=== PATIENT | male | born 1970 | race Caucasian/White ===

== ENCOUNTER 2016-12-01 23:51 | Observation (INO) | payer OTHER ==
[2016-12-02 00:06] VITALS: TEMP 97.1; BMI 28.8
--- NOTE | 2016-12-02 00:11 | PDOC ---
History of Present Illness - General History Source: Patient Exam Limitations: No Limitations - History of Present Illness Initial Comments: 12/02/16 00:31 The patient is a 46 year old male, with a significant past medical history of diabetes, hypertension and hyperlipidemia, who presents to the emergency department complaining of chest pain for the past couple of hours. The patient describes the pain as a tightness. He reports associated numbness and throat tightness. The patient states he feels pain in his throat when swallowing, and feels as if he were about to choke. He reports throat pain is exacerbated when taking a deep breath. He states he feels tension in his shoulders and tightness in his jaw. He reports yellow nasal discharge, but denies any fever, chills, cough, headache, or dizziness. The patient reports a history of nasal congestion , but states his symptoms today are different from those of his congestion. The patient denies any diaphoresis or palpitations. The patient denies any abdominal pain, nausea, vomiting, diarrhea, constipation, or changes in urination patterns. Allergies: None reported. Past Surgical History: None reported. Social History: Current everyday smoker. Denies alcohol or drug use. <Deny Lua - Last Filed: 12/02/16 02:03> <Jack Carson - Last Filed: 12/03/16 09:19> - General Chief Complaint: CVA/TIA Stated Complaint: NUMBNESS Time Seen by Provider: 12/02/16 00:10 Past History <Deny Lua - Last Filed: 12/02/16 02:03> - Past Medical History Anemia: No Asthma: No Cancer: No Cardiac Disorders: No CVA: No COPD: No CHF: No Dementia: No Diabetes: No GI Disorders: No Disorders: No HTN: Yes Hypercholesterolemia: Yes (triglycerides) Liver Disease: No Seizures: No Thyroid Disease: No - Surgical History Abdominal Surgery: No Appendectomy: No Cardiac Surgery: No Cholecystectomy: No Lung Surgery: No Neurologic Surgery: No Orthopedic Surgery: No - Psycho/Social/Smoking Cessation Hx Suicidal Ideation: No Smoking History: Current every day smoker Have you smoked in the past 12 months: Yes Number of Cigarettes Smoked Daily: 10 Information on smoking cessation initiated: Yes 'Breaking Loose' booklet given: 12/02/16 Hx Alcohol Use: No Drug/Substance Use Hx: No Substance Use Type: None Hx Substance Use Treatment: No <[email or web address] - Last Filed: 12/03/16 09:19> - Past Medical History Allergies/Adverse Reactions: Allergies Allergy/AdvReac Type Severity Reaction Status Date / Time No Known Drug Allergies Allergy Verified 12/02/16 00:04 Home Medications: Ambulatory Orders Candesartan/Hydrochlorothiazid [Atacand Hct 32-12.5 mg -] 1 each PO DAILY Rosuvastatin Calcium [Crestor] 10 mg PO ASDIR 09/01/12 Review of Systems - Review of Systems Able to Perform ROS?: Yes Comments:: 12/02/16 00:32 GENERAL/CONSTITUTIONAL: +Numbness. No fever or chills. HEAD, EYES, EARS, NOSE AND THROAT: +Throat tightness/ difficulty swallowing, + nasal discharge. No change in vision. No ear pain or discharge. CARDIOVASCULAR: +Chest pain/tightness. No shortness of breath. RESPIRATORY: No cough, wheezing, or hemoptysis. GASTROINTESTINAL: No nausea, vomiting, diarrhea or constipation. GENITOURINARY: No dysuria, frequency, or change in urination. MUSCULOSKELETAL: +Shoulder tension. No joint or muscle swelling or pain. No neck or back pain. SKIN: No rash NEUROLOGIC: No headache, vertigo, loss of consciousness, or change in strength/ sensation. ENDOCRINE: No increased thirst. No abnormal weight change. HEMATOLOGIC/LYMPHATIC: No anemia, easy bleeding, or history of blood clots. ALLERGIC/IMMUNOLOGIC: No hives or skin allergy. <Deny Lua - Last Filed: 12/02/16 02:03> *Physical Exam - Vital Signs Last Vital Signs Temp Pulse Resp BP Pulse Ox 97.1 F L 83 18 130/92 97 12/02/16 00:05 12/02/16 00:05 12/02/16 00:05 12/02/16 00:05 12/02/16 00:05 - Physical Exam Comments: 12/02/16 00:34 GENERAL: Awake, alert, and fully oriented, in no acute distress HEAD: No signs of trauma EYES: PERRLA, EOMI, sclera anicteric, conjunctiva clear ENT: Auricles normal inspection, hearing grossly normal, nares patent, oropharynx clear without exudates. Moist mucosa NECK: Normal ROM, supple, no lymphadenopathy, JVD, or masses LUNGS: Breath sounds equal, clear to auscultation bilaterally. No wheezes, and no crackles HEART: Regular rate and rhythm, normal S1 and S2, no murmurs, rubs or gallops ABDOMEN: Soft, nontender, normoactive bowel sounds. No guarding, no rebound. No masses EXTREMITIES: Normal range of motion, no edema. No clubbing or cyanosis. No cords, erythema, or tenderness NEUROLOGICAL: Cranial nerves II through XII grossly intact. Normal speech, normal gait SKIN: Warm, Dry, normal turgor, no rashes or lesions noted. <Deny Lua - Last Filed: 12/02/16 02:03> - Vital Signs Last Vital Signs Temp Pulse Resp BP Pulse Ox 97.1 F L 83 18 130/92 97 12/02/16 00:05 12/02/16 00:05 12/02/16 00:05 12/02/16 00:05 12/02/16 00:05 <Jack Carson - Last Filed: 12/03/16 09:19> ED Treatment Course - LABORATORY CBC & Chemistry Diagram: 12/02/16 00:30 12/02/16 00:30 <Deny Lua - Last Filed: 12/02/16 02:03> - LABORATORY CBC & Chemistry Diagram: 12/02/16 00:30 12/02/16 00:30 <Jcak Carson - Last Filed: 12/03/16 09:19> Medical Decision Making - Medical Decision Making 12/02/16 02:05 Patient was administered nitroglycerin, which provided relief of chest pressure. <Deny Lua - Last Filed: 12/02/16 02:03> - Medical Decision Making 12/02/16 00:52 The patient has NO stroke or TIA symptoms at all. He described to me a pressure in the chest that radiates to his jaw, also a shortness of breath and no diaphoresis. ON exam: he is symmetrical and has no motor and sensory deficits and CR 2-12 are intact. <Jack Carson - Last Filed: 12/03/16 09:19> *DC/Admit/Observation/Transfer - Attestations Scribe Attestion: 12/02/16 00:35 Documentation prepared by Deny Lua, acting as medical parasitologist for Jack Carson MD. <Deny Lua - Last Filed: 12/02/16 02:03> <Jack Carson - Last Filed: 12/03/16 09:19> Diagnosis at time of Disposition: Chest pain Qualifiers: Chest pain type: unspecified Qualified Code(s): R07.9 - Chest pain, unspecified
[2016-12-02] MEDS ORDERED: ASPIRIN 325 MG ENTERIC COATED TABLET (FP) PO ONE (00:17)
[2016-12-02] MEDS ORDERED: NITROGLYCERIN SUBLINGUAL 1/150 0.4 MG TAB ONE (00:38)
[2016-12-02] MEDS ORDERED: ASPIRIN 325 MG ENTERIC COATED TABLET (FP) ONE (00:38)
[2016-12-02] MEDS: NITROGLYCERIN SUBLINGUAL 1/150 0.4 MG TAB SL PRN ×2 (00:42→00:56)
[2016-12-02 01:00] LABS: BASOPHIL 0.5 % (0-2.0); EOSINOPHIL 0.2 % (0-4.5); MCH 30.9 pg (25.7-33.7); MCHC 34.6 g/dl (32.0-35.9); MEAN CELL VOLUME 89.4 fl (80-96); NEUTROPHILS 80.4 % (42.8-82.8); PLATELET COUNT 213 K/MM3 (134-434); RDW 13.2 % (11.9-15.9); WHITE BLOOD COUNT 11.3 K/mm3 (4.0-10.0)
[2016-12-02 01:20] LABS: INR 1.07 (0.82-1.09); PROTHROMBIN TIME (PATIENT) 11.8 SEC (9.98-11.88)
[2016-12-02 01:23] LABS: ACTIVATED PTT 49.9 SECONDS (26.9-34.4)
[2016-12-02 01:29] LABS: ANION GAP 13 (8-16); BILIRUBIN,TOTAL 0.5 mg/dL (0.2-1.0); CALCIUM 8.6 mg/dL (8.5-10.1); CO2 24 mmol/L (21-32)
[2016-12-02 01:32] LABS: ALK PHOS 49 U/L (45-117); TROPONIN I < 0.02 ng/ml (0.00-0.05)
[2016-12-02 01:49] LABS: GLUCOSE,RANDOM 143 mg/dL (74-106); SGOT/AST 42 U/L (15-37)
[2016-12-02 01:50] LABS: SGPT/ALT 68 U/L (12-78)
--- NOTE | 2016-12-02 07:19 | PDOC ---
*Physical Exam - Vital Signs Last Vital Signs Temp Pulse Resp BP Pulse Ox 97.1 F L 60 18 110/81 97 12/02/16 00:05 12/02/16 06:30 12/02/16 06:30 12/02/16 06:30 12/02/16 06:30 ED Treatment Course - LABORATORY CBC & Chemistry Diagram: 12/02/16 00:30 12/02/16 00:30 - ADDITIONAL ORDERS Additional order review: Laboratory Results 12/02/16 12/02/16 00:30 00:30 INR 1.07 PTT (Actin FS) 49.9 H D Sodium 140 Potassium 4.0 Chloride 103 Carbon Dioxide 24 Anion Gap 13 BUN 18 D Creatinine 1.0 D Creat Clearance w eGFR > 60 Random Glucose 143 H D Calcium 8.6 Magnesium 2.0 Total Bilirubin 0.5 D AST 42 H D ALT 68 D Alkaline Phosphatase 49 Creatine Kinase 140 Troponin I < 0.02 Total Protein 7.0 Albumin 4.0 12/02/16 00:30 RBC 5.03 MCV 89.4 MCHC 34.6 RDW 13.2 MPV 10.0 Neutrophils % 80.4 Lymphocytes % 14.1 Monocytes % 4.8 Eosinophils % 0.2 Basophils % 0.5 - Medications Given in the ED: ED Medications Discontinued Medications Generic Name Dose Route Start Last Admin Trade Name Freq PRN Reason Stop Dose Admin Aspirin 325 mg 12/02/16 00:17 12/02/16 00:42 Ecotrin - PO 12/02/16 00:18 325 mg ONCE ONE Administration Medical Decision Making - Medical Decision Making 12/02/16 07:18 case signed out to me from Dr. Carson. 46y M hx of smoking, diabetes, hypertension and hyperlipidemia, presents with chest tightness, sob radiating to the throat for several hours and radiating to his shoulder for several hours prior to presentation. No associated n/v. No reported exertional sypmtoms. +F EKG shows nonspecific TWI in lead III Based on risk factors, will observe for further risk stratification and cardiology consultation. Pts PMD is dr. Wheat - alpesh Wilkerson. 12/02/16 07:47 case d/w dr. Reyes, covering for Dr. Wilkerson agreed with observation and cardiology consult requested cardiology consult from dr. egan. 12/02/16 07:56 case d/w dr. Stoner (cardiology) agreed with observation Case discussed in detail with admitting physician including history, physical exam and ancillary studies. Admitting physician has assumed care for the patient, will follow all pending diagnostics and will complete the evaluation and treatment. *DC/Admit/Observation/Transfer Diagnosis at time of Disposition: Chest pain Qualifiers: Chest pain type: unspecified Qualified Code(s): R07.9 - Chest pain, unspecified - Discharge Dispostion Admit: Yes - Referrals Referrals: Avelino Wheat MD [Primary Care Provider] -
[2016-12-02 07:38] LABS: TROPONIN I < 0.02 ng/ml (0.00-0.05)
[2016-12-02] MEDS ORDERED: ROSUVASTATIN CA 5 MG TABLET (FP) PO SCH (08:00)
--- NOTE | 2016-12-02 09:17 | CON.CARD ---
Consult Consult Specialty:: Cardiology Referred by:: Dr. Reyes Reason for Consultation:: Chest pain - History of Present Illness Chief Complaint: Chest pain History of Present Illness: 46 yo male with HTN, hyperlipidemia, and family history of premature CAD ( father from [place] at age 48), who presented to ED with chest pain which began ~ 10 PM last night while at rest. Patient described CP as pressure-like discomfort/tightness radiating to his neck and back which lasted until he arrived at that ED several hours later. He denied associated dyspnea, nausea, or diaphoresis. He does not engage in regular exercise. Currently asymptomatic. ECG demonstrated no ischemic ST-T changes. Trops (-) x 2. CXR was negative for effusions or infiltrates. - History Source History Provided By: Patient Limitations to Obtaining History: No Limitations - Past Medical History Cardio/Vascular: Yes: HTN, Hyperlipdemia Gastrointestinal: Yes: GERD - Past Surgical History Additional Surgical History: Deviated septum surgery - Alcohol/Substance Use Hx Alcohol Use: No History of Substance Use: reports: None - Smoking History Smoking history: Current every day smoker Have you smoked in the past 12 months: Yes Aproximately how many cigarettes per day: 10 Home Medications - Allergies Allergies/Adverse Reactions: Allergies Allergy/AdvReac Type Severity Reaction Status Date / Time No Known Drug Allergies Allergy Verified 12/02/16 00:04 - Home Medications Home Medications: Ambulatory Orders Candesartan/Hydrochlorothiazid [Atacand Hct 32-12.5 mg Tab] 1 each PO DAILY 04/07 Rosuvastatin Calcium [Crestor] 10 mg PO ASDIR 09/01/12 Family Disease History - Family Disease History Family Disease History: Heart Disease: Father ( from [place] at age 48) Review of Systems - Review of Systems Constitutional: reports: No Symptoms Eyes: reports: No Symptoms HENT: reports: No Symptoms Neck: reports: No Symptoms Cardiovascular: reports: Chest Pain. denies: Edema, Palpitations, Shortness of Breath Respiratory: reports: No Symptoms Gastrointestinal: reports: No Symptoms Genitourinary: reports: No Symptoms Musculoskeletal: reports: No Symptoms Neurological: reports: No Symptoms Endocrine: reports: No Symptoms Hematology/Lymphatic: reports: No Symptoms Psychiatric: reports: No Symptoms Vital Signs: Vital Signs Temperature 97.1 F L 12/02/16 00:05 Pulse Rate 60 12/02/16 06:30 Respiratory Rate 18 12/02/16 06:30 Blood Pressure 110/81 12/02/16 06:30 O2 Sat by Pulse Oximetry (%) 97 12/02/16 06:30 Constitutional: Yes: Well Nourished, No Distress Eyes: Yes: Conjunctiva Clear, EOM Intact HENT: Yes: Atraumatic, Normocephalic Respiratory: Yes: CTA Bilaterally Gastrointestinal: Yes: Normal Bowel Sounds, Soft. No: Tenderness Cardiovascular: Yes: Regular Rate and Rhythm JVD: No Carotid Bruit: No PMI: Non-Displaced Heart Sounds: Yes: S1, S2 Murmur: No: Systolic Murmur Musculoskeletal: Yes: WNL Extremities: Yes: WNL Edema: No Peripheral Pulses WNL: Yes Neurological: Yes: Alert, Oriented, Cran Nerves II-XII Intact ...Motor Strength: WNL Psychiatric: Yes: WNL - Other Data Labs, Other Data: INR, PTT INR 1.07 (0.82-1.09) 12/02/16 00:30 12/02/16 ECG (at 6:17): Sinus bradycardia, rate 58 bpm Imaging - Results Chest X-ray: Report Reviewed (12/02/16: No effusions or infiltrates), Image Reviewed Assessment/Plan 46 yo male with HTN, hyperlipidemia, and family history of premature CAD ( father from [place] at age 48). Presents with chest pain at 10 PM last night while at rest which lasted for several hours before resolving. Trops (-) x2 No ischemic ECG changes. CXR unremarkable RECS: Echocardiogram to assess LV function and structural heart disease Treadmill nuclear stress test to evaluate for ischemic heart disease If treadmill nuclear is negative for significant area of ischemia, patient may be discharged with outpatient follow-up. Continue Crestor 10 mg po daily. Patient to use valsartan 160 mg po daily while in-house and HCTZ 12.5 mg po daily (equivalent to Atacand-HCT 32 mg/12.5 mg). Please call with questions.
[2016-12-02] MEDS ORDERED: DIPYRIDAMOLE 50 MG/10 ML VIAL IVPB ONE (09:53)
[2016-12-02] MEDS ORDERED: VALSARTAN 160 MG TABLET (UD) PO SCH ×2 (10:00)
[2016-12-02] MEDS ORDERED: HYDROCHLOROTHIAZIDE 12.5 MG CAPSULE (FP) PO SCH (10:00)
--- NOTE | 2016-12-02 13:27 | HP ---
Admitting History and Physical - Admission History of Present Illness: The patient is a 46 year old male, with a significant past medical history of diabetes, hypertension and hyperlipidemia, who presents to the emergency department complaining of chest pain for the past couple of hours. The patient describes the pain as a tightness. He reports associated numbness and throat tightness. The patient states he feels pain in his throat when swallowing, and feels as if he were about to choke. He reports throat pain is exacerbated when taking a deep breath. He states he feels tension in his shoulders and tightness in his jaw. He reports yellow nasal discharge, but denies any fever, chills, cough, headache, or dizziness. The patient reports a history of nasal congestion , but states his symptoms today are different from those of his congestion. The patient denies any diaphoresis or palpitations. The patient denies any abdominal pain, nausea, vomiting, diarrhea, constipation, or changes in urination patterns. Allergies: None reported. Past Surgical History: None reported. Social History: Current everyday smoker. Denies alcohol or drug use. per patiet he was watching tv last evening when he started havng chest tightness , light headednesss and palpiatations, no nausea,non radation so he came to ER lasted for a few hours in ER he got stresd test saw cardiology awating results CE negative EKG sinus bradycardia History Source: Patient - Past Medical History Cardiovascular: Yes: HTN, Hyperlipdemia Gastrointestinal: Yes: GERD - Smoking History Smoking history: Current every day smoker Have you smoked in the past 12 months: Yes Aproximately how many cigarettes per day: 10 - Alcohol/Substance Use Hx Alcohol Use: No History of Substance Use: reports: None Home Medications - Allergies Allergies/Adverse Reactions: Allergies Allergy/AdvReac Type Severity Reaction Status Date / Time No Known Drug Allergies Allergy Verified 12/02/16 00:04 - Home Medications Home Medications: Ambulatory Orders Candesartan/Hydrochlorothiazid [Atacand Hct 32-12.5 mg Tab] 1 each PO DAILY 04/07 Rosuvastatin Calcium [Crestor] 10 mg PO ASDIR 09/01/12 Family Disease History - Family Disease History Family Disease History: Heart Disease: Father ( from [place] at age 48) Physical Examination Vital Signs: Vital Signs Temperature 97.1 F L 12/02/16 00:05 Pulse Rate 70 12/02/16 09:40 Respiratory Rate 19 12/02/16 09:40 Blood Pressure 105/65 12/02/16 09:40 O2 Sat by Pulse Oximetry (%) 97 12/02/16 09:40 Imaging - Results X-ray: Report Reviewed (negative) Problem List - Problems (1) Chest pain Assessment/Plan: CE negative two sets had a stress test given h/o htnDM awaiting results continue home medication Code(s): R07.9 - CHEST PAIN, UNSPECIFIED Qualifiers: Chest pain type: unspecified Qualified Code(s): R07.9 - Chest pain, unspecified
--- NOTE | 2016-12-02 13:28 | DS ---
Physical Examination Vital Signs: Vital Signs Temperature 97.1 F L 12/02/16 00:05 Pulse Rate 70 12/02/16 09:40 Respiratory Rate 19 12/02/16 09:40 Blood Pressure 105/65 12/02/16 09:40 O2 Sat by Pulse Oximetry (%) 97 12/02/16 09:40 patient is awake and alert wants to go home Constitutional: Yes: Calm Neck: Yes: Trachea Midline Cardiovascular: Yes: Regular Rate and Rhythm, S1, S2 Respiratory: Yes: CTA Bilaterally Gastrointestinal: Yes: Normal Bowel Sounds, Soft Edema: No Neurological: Yes: Alert, Oriented Discharge Summary Reason For Visit: CHEST PAIN Current Active Problems Chest pain (Acute) Hospital Course: patient h/o dm and htn came in with chest pressure for a few hours which started at rest while watching tv got full dose asa in ER CE negative stress test done no ischemia seen d/w cardiology can dc home - Instructions Diet, Activity, Other Instructions: low sodium diet Referrals: Avelino Wheat MD [Primary Care Provider] - Disposition: HOME - Home Medications Comprehensive Discharge Medication List: Ambulatory Orders Candesartan/Hydrochlorothiazid [Atacand Hct 32-12.5 mg Tab] 1 each PO DAILY 04/07 Rosuvastatin Calcium [Crestor] 10 mg PO ASDIR 09/01/12
[2016-12-02 14:02] LABS: TROPONIN I < 0.02 ng/ml (0.00-0.05)
[2016-12-02 14:51] VITALS: BP 134/84; PULSE 84
--- NOTE | 2016-12-03 00:26 | EKG ---
Test Reason : Blood Pressure : / mmHG Vent. Rate : 058 BPM Atrial Rate : 058 BPM P-R Int : 196 ms QRS Dur : 102 ms QT Int : 422 ms P-R-T Axes : 003 -02 002 degrees QTc Int : 414 ms SINUS BRADYCARDIA OTHERWISE NORMAL ECG WHEN COMPARED WITH ECG OF 02-DEC-2016 00:31, NO SIGNIFICANT CHANGE WAS FOUND Confirmed by LUIS EDUARDO ABDI MD ([id number]) on 12/03/2016 12:25:50 AM Referred By: Confirmed By:LUIS EDUARDO ABDI MD
--- NOTE | 2016-12-03 00:27 | EKG ---
Test Reason : Blood Pressure : / mmHG Vent. Rate : 078 BPM Atrial Rate : 078 BPM P-R Int : 184 ms QRS Dur : 092 ms QT Int : 378 ms P-R-T Axes : 017 000 011 degrees QTc Int : 430 ms NORMAL SINUS RHYTHM NORMAL ECG NO PREVIOUS ECGS AVAILABLE Confirmed by LUIS EDUARDO ABDI MD ([id number]) on 12/03/2016 12:26:48 AM Referred By: Confirmed By:LUIS EDUARDO ABDI MD
[2016-12-03] MEDS ORDERED: ROSUVASTATIN CA 10 MG TABLET (FP) PO SCH (22:00)
== END 2016-12-02 14:16 | disposition home or self-care (01) ==
LOC: JER 23:51 → JERBED 12-02 07:55 → UNDODISOB 12-02 14:16
PROVIDERS: ADMIT Family Medicine; ATTEND Family Medicine
DX: R07.9 Chest pain, unspecified (principal); E11.9 Type 2 diabetes mellitus without complications; I10 Essential (primary) hypertension; E78.5 Hyperlipidemia, unspecified; F17.210 Nicotine dependence, cigarettes, uncomplicated
CPT/HCPCS: 36415; 71020-TC; 78452-TC; 80053; 82550; 83036; 83735; 84484; 85025; 85610; 85730; 93005; 93010; 93017; 93306-TC; 99285-25; A9502; G0378

== ENCOUNTER 2018-12-23 10:18 | Day surgery (SDC) | payer OTHER ==
[2018-12-10 11:33] VITALS: BMI 31.0
[2018-12-23] MEDS ORDERED: MIDAZOLAM HCL 2 MG/2 ML SINGLE DOSE VIAL ONE (11:53)
[2018-12-23] MEDS ORDERED: PROPOFOL 20 ML ONE ×3 (12:14)
[2018-12-23] MEDS ORDERED: BUPIVACAINE HCL 0.25% 125 MG/50 ML VIAL ONE (12:43)
[2018-12-23] MEDS ORDERED: oxyCODONE HCL 5 MG TABLET PO PRN ×2 (13:26)
[2018-12-23] MEDS ORDERED: ONDANSETRON 4 MG/2 ML VIAL IVPUSH PRN (13:26)
[2018-12-23] MEDS ORDERED: LACTATED RINGERS SOLUTION 1,000 ML IV SCH (13:30)
[2018-12-23] MEDS ORDERED: ONDANSETRON 4 MG/2 ML VIAL ONE (13:34)
[2018-12-23] MEDS ORDERED: ONDANSETRON 4 MG/2 ML VIAL IVPUSH ONE (13:38)
[2018-12-23 15:05] VITALS: BP 110/62; PULSE 70; TEMP 98.3
--- NOTE | 2018-12-24 15:34 | OP ---
DATE OF OPERATION: 12/23/2018 PREOPERATIVE DIAGNOSIS: Left carpal tunnel syndrome. POSTOPERATIVE DIAGNOSIS: Left carpal tunnel syndrome. OPERATIVE PROCEDURE: Left endoscopic carpal tunnel release. ANESTHESIA: General. COMPLICATIONS: None. ESTIMATED BLOOD LOSS: Minimal. INDICATION FOR PROCEDURE: The patient is a 48-year-old male with the above finding, indicated for operative treatment. Risks, benefits, and alternatives were discussed with the patient at length. Proper informed consent was obtained. PROCEDURE: After proper identification of the patient and the correct operative site, patient was brought to the operating room and placed supine on the operative table. All prominences were well padded. General anesthesia was given. Left upper extremity was prepped and draped in the usual sterile fashion. An Esmarch bandage was used to exsanguinate the left upper extremity. Tourniquet was inflated to 250 mmHg. A transverse incision was made over the proximal wrist crease ulnar to the palmaris longus tendon. The incision was taken sharply through the skin with blunt and sharp dissection through the subcutaneous tissues. Antebrachial fascia was divided, and the carpal canal was entered. Elevator was used to free any soft tissue off the undersurface of the transcarpal ligament. Hamate finder dilators were then used to prepare the canal, and the MicroAire endoscopic carpal tunnel release system was then used and inserted to the distal edge of the transcarpal ligament which was confirmed visually as well as palpably. The blade was then deployed, and the transcarpal ligament was divided. At all times throughout the procedure, excellent visualization was achieved, and at no time was any soft tissue allowed to interpose between the blade and the undersurface of the transcarpal ligament. A direct mini-open approach to the distal 4 cm of the antebrachial fascia was also done, and this fascia was released. Full release of the median nerve of the wrist was accomplished. The wound was irrigated and repaired with 5-0 Monocryl suture. Steri-Strips and sterile dressings were applied. Patient was reversed from anesthesia and brought to Recovery in stable condition. He tolerated the procedure well. Lorie [id number]
== END 2018-12-23 15:05 | disposition home or self-care (01) ==
LOC: FASU 10:18
PROVIDERS: ATTEND Orthopaedic Surgery Hand Surgery
PROC: 01N54ZZ Release Median Nerve, Percutaneous Endoscopic Approach (ICD-10-PCS; principal; 2018-12-23 12:41)
DX: G56.02 Carpal tunnel syndrome, left upper limb (principal)
CPT/HCPCS: 94760

== ENCOUNTER 2020-11-09 16:07 | Emergency (ER) | payer BC | END 2020-11-09 19:08 | disposition home or self-care (01) | LOC: JVIRT 16:07 | DX: Z20.822 Contact with and (suspected) exposure to COVID-19 (principal) | CPT/HCPCS: C9803; Q3014-GT; U0003 ==

== ENCOUNTER 2021-07-21 15:45 | Emergency (ER) | payer BC ==
[2021-07-21 15:56] VITALS: BP 115/76; PULSE 65; TEMP 98.7; BMI 26.6
[2021-07-21] MEDS ORDERED: KETOROLAC TROMETHAMINE 60 MG/2 ML VIAL IM ONE (16:01)
[2021-07-21] MEDS ORDERED: ACETAMINOPHEN 500 MG TABLET (FP) PO ONE (16:01)
[2021-07-21] MEDS ORDERED: LIDOCAINE 5% TOPICAL PATCH TP ONE (16:01)
[2021-07-21] MEDS ORDERED: KETOROLAC TROMETHAMINE 60 MG/2 ML VIAL ONE (16:08)
[2021-07-21] MEDS ORDERED: ACETAMINOPHEN 500 MG TABLET (FP) ONE (16:09)
[2021-07-21] MEDS ORDERED: LIDOCAINE 5% TOPICAL PATCH ONE (16:09)
[2021-07-21] MEDS ORDERED: LIDOCAINE PATCH REMOVAL MC SCH (22:00)
== END 2021-07-21 18:10 | disposition home or self-care (01) ==
LOC: FER 15:45
PROC: 3E0233Z Introduction of Anti-inflammatory into Muscle, Percutaneous Approach (ICD-10-PCS; principal; 2021-07-21)
DX: R07.81 Pleurodynia (principal)
CPT/HCPCS: 71101-TC-LT-FY; 93005; 99284-25